=== PATIENT | male | born 1985 | race Caucasian/White ===

== ENCOUNTER 2017-10-25 06:38 | Emergency (ER) | END 2017-10-25 09:20 | disposition home or self-care (01) ==

== ENCOUNTER 2018-08-10 17:38 | Emergency (ER) | payer MEDICAID ==
[~2018-08-10] VITALS: Ht 170.2 cm; Wt 85.2 kg
[~2018-08-10 17:38] MED LIST: NAPR-985 PO; PRED20TA PO
[2018-08-10 17:44] VITALS: BP 139/99; PULSE 89; RESP 19; Ht 170.2 cm; Wt 85.2 kg
[2018-08-10] MEDS ORDERED: PENI500T PO (19:41)
[2018-08-10] MEDS ORDERED: IBUP-1542 PO (19:41)
[2018-08-10] MEDS ORDERED: SUMATRIPTAN 6 MG/0.5 ML INJ SC ONE (20:00)
[2018-08-10] MEDS ORDERED: PROCHLORPERAZINE 10 MG TAB PO ONE (20:00)
--- NOTE | 2018-08-11 02:33 | ERD ---
ER Documentation Chief Complaint Chief Complaint left ear pain & ST HPI 33-year-old presents for left ear pain and sore throat times 4 days. Patient states that he is also been having subjective fevers. Denies any cough. Sore throat is noted on the left side of the throat. He denies any chest pain or shortness of breath. ROS All systems reviewed and are negative except as per history of present illness. Medications Home Meds Active Scripts Ibuprofen* (Motrin*) 600 Mg Tab, 600 MG PO Q6H PRN for PAIN AND OR ELEVATED TEMP, #30 TAB Prov:NIGHAT MCCLELLAND DO 08/10/18 Penicillin V Potassium* (Penicillin V K*) 500 Mg Tab, 500 MG PO TID for strep throat for 10 Days, #30 TAB Prov:NIGHAT MCCLELLAND DO 08/10/18 Prednisone* (Prednisone*) 20 Mg Tab, 40 MG PO DAILY for 4 Days, TAB Prov:NAVARRO ROSAS PA-C 10/25/17 Naproxen* (Naprosyn*) 500 Mg Tablet, 500 MG PO BID PRN for PAIN AND/OR INFLAMMATION, #30 TAB Prov:NAVARRO ROSAS PA-C 10/25/17 Allergies Allergies: Coded Allergies: No Known Allergy (Unverified , 10/25/17) PMhx/Soc Hx Alcohol Use: No Hx Substance Use: No Hx Tobacco Use: No Smoking Status: Never smoker Physical Exam Vitals Vital Signs Date Temp Pulse Resp B/P (MAP) Pulse Ox O2 O2 Flow FiO2 Time Delivery Rate 08/10/18 99.0 89 19 139/99 100 17:44 (112) Physical Exam Const: No acute distress Head: Atraumatic Eyes: Normal Conjunctiva ENT: Normal External Ears, bilateral tympanic membrane intact without erythema or bulging noted, nose examination normal, there is bilateral tonsillar exudate swelling noted, airways patent however. Uvula is midline. Neck: Full range of motion. No meningismus. Resp: Clear to auscultation bilaterally, no wheezing, rales, rhonchi Cardio: Regular rate and rhythm, no murmurs Skin: No petechiae or rashes Ext: No cyanosis, or edema Neur: Awake and alert Psych: Normal Mood and Affect Results 24 hrs Current Medications Medications Dose Sig/Jakub Start Time Status Last (Trade) Ordered Route PRN Stop Time Admin Dose Reason Admin 10 mg ONCE ONCE 08/10/18 DC Prochlorperaz PO 20:00 08/10/18 ine 20:00 (Compazine) Sumatriptan 6 mg ONCE ONCE 08/10/18 DC Succinate SC 20:00 08/10/18 (Imitrex) 20:00 Procedures/MDM Medical Decision Making: Differential diagnosis includes but not limited to upper respiratory infection, pneumonia, sepsis, strep pharyngitis. Patient appeared well on physical examination, nontoxic appearing. Lungs were clear to auscultation bilaterally. There is low suspicion for pneumonia, sepsis. There was tonsillar exudate and swelling noted. Given history of fever, tonsillar exudate, no cough, patient has 3 of the 4 centor criteria. Therefore patient will be treated empirically for strep throat. Patient given prescription for Motrin, penicillin. Patient advised to follow up with PCP in 1-2 days. Patient advised to return to ED for new or worsening symptoms. Patient stable on discharge from the ED. Disclaimer: Inadvertent spelling and grammatical errors are likely due to EHR/dictation software use and do not reflect on the overall quality of patient care. Also, please note that the electronic time recorded on this note does not necessarily reflect the actual time of the patient encounter. Departure Diagnosis: Primary Impression: Strep pharyngitis Condition: Fair Patient Instructions: Pharyngitis, Strep (Presumed) Referrals: ON LICENSE OF [facility] YOU HAVE RECEIVED A MEDICAL SCREENING EXAM AND THE RESULTS INDICATE THAT YOU DO NOT HAVE A CONDITION THAT REQUIRES URGENT TREATMENT IN THE EMERGENCY DEPARTMENT. FURTHER EVALUATION AND TREATMENT OF YOUR CONDITION CAN WAIT UNTIL YOU ARE SEEN IN YOUR DOCTORS OFFICE WITHIN THE NEXT 1-2 DAYS. IT IS YOUR RESPONSIBILITY TO MAKE AN APPOINTMENT FOR FOLOW-UP CARE. IF YOU HAVE A PRIMARY DOCTOR --you should call your primary doctor and schedule an appointment IF YOU DO NOT HAVE A PRIMARY DOCTOR YOU CAN CALL OUR PHYSICIAN REFERRAL HOTLINE AT IF YOU CAN NOT AFFORD TO SEE A PHYSICIAN YOU CAN CHOSE FROM THE FOLLOWING [facility] [address] [facility]. [facility] [address] [facility] [address] [facility] [address] [facility]. [facility] [address] [facility] [facility] [address] Additional Instructions: Llame al doctor MAANA y tyrell arnaud ELDON PARA DENTRO DE 1-2 BENAVIDES.Dgale a la secretaria que nosotros le instruimos hacer esta eldon.Avise o llame si esquivel condicin se empeora antes de la eldon. Regresa aqui si peor o no mejor. NIGHAT MCCLELLAND DO Aug 11, 2018 02:33
== END 2018-08-10 20:09 | disposition home or self-care (01) ==
LOC: FTE 17:38
DX: J02.0 Streptococcal pharyngitis (principal)
CPT/HCPCS: 99283